=== PATIENT | male | born 1985 | race Two or more races ===

== ENCOUNTER 2024-04-22 19:29 | Emergency (ER) | payer OTHER ==
[~2024-04-22] VITALS: Ht 162.6 cm; Wt 77.1 kg
[2024-04-22] MEDS ORDERED: TETANUS & DIPHTHERIA TOX,ADULT 0.5 ML VIAL IM ONE (20:30)
== END 2024-04-22 20:42 | disposition home or self-care (01) ==
LOC: ER 19:31
DX: S01.81XA Laceration without foreign body of other part of head, initial encounter (principal); W19.XXXA Unspecified fall, initial encounter; Y93.I9 Activity, other involving external motion; Y92.89 Other specified places as the place of occurrence of the external cause; Y99.8 Other external cause status
CPT/HCPCS: 12011; 90471; 90714; 96372; J1670

== ENCOUNTER → 2024-04-29 | Emergency (ER) | payer OTHER ==
[~2024-04-29] VITALS: Ht 170.2 cm; Wt 68.0 kg
== END | disposition home or self-care (01) ==
LOC: ER 11:22
DX: Z48.02 Encounter for removal of sutures (principal)